=== PATIENT | female | born 1955 | race African-American/Black ===

== ENCOUNTER 2018-01-17 17:56 | Inpatient (IN) | payer OTHER ==
--- NOTE | 2018-01-17 18:45 | ER Document Report ---
ED Extremity Problem, Upper - General Chief Complaint: Hand Swelling Stated Complaint: FINGER SWELLING Time Seen by Provider: 01/17/18 18:36 Mode of Arrival: Ambulatory Information source: Patient Notes: 62-year-old hypertensive female with a history of a chronic bump on the top of her left third finger woke up Sunday morning with swelling to the PIP joint. She saw Dr. Everett on Sunday he started her on Augmentin 875 and it is increased in pain, erythema, swelling since then. It is throbbing and very painful. She states the swelling is now into the middle of her dorsal left hand. She does have a history of gout. Low-grade fever. She does not systemically feel ill. TRAVEL OUTSIDE OF THE [place] IN LAST 30 DAYS: No - Related Data Allergies/Adverse Reactions: No Known Allergies Allergy (Verified 01/17/18 17:58) Past Medical History - General Information source: Patient - Social History Smoking Status: Never Smoker Frequency of alcohol use: None Drug Abuse: None Lives with: Spouse/Significant other Family History: Reviewed & Not Pertinent - Past Medical History Cardiac Medical History: Reports: Hx Hypertension Musculoskeltal Medical History: Reports Hx Gout Surgical Hx: Negative - Immunizations Hx Diphtheria, Pertussis, Tetanus Vaccination: No Review of Systems - Review of Systems Constitutional: See HPI EENT: No symptoms reported Cardiovascular: No symptoms reported Respiratory: No symptoms reported Gastrointestinal: No symptoms reported Genitourinary: No symptoms reported Female Genitourinary: No symptoms reported Musculoskeletal: See HPI Skin: No symptoms reported Hematologic/Lymphatic: No symptoms reported Neurological/Psychological: No symptoms reported Physical Exam - Vital signs Vitals: Temp Pulse Resp BP Pulse Ox 99.0 F 77 18 196/96 H 98 01/17/18 18:06 01/17/18 18:06 01/17/18 18:06 01/17/18 18:06 01/17/18 18:06 Interpretation: Normal - General General appearance: Appears well, Alert In distress: None - HEENT Head: Normocephalic, Atraumatic Eyes: Normal Conjunctiva: Normal Pupils: PERRL Neck: Supple - Respiratory Respiratory status: No respiratory distress Chest status: Nontender Breath sounds: Normal Chest palpation: Normal - Cardiovascular Rhythm: Regular Heart sounds: Normal auscultation Murmur: No - Abdominal Inspection: Normal Distension: No distension Bowel sounds: Normal Tenderness: Nontender Organomegaly: No organomegaly - Back Back: Normal, Nontender - Extremities General upper extremity: Normal inspection, Nontender, Normal color, Normal ROM , Normal temperature General lower extremity: Normal inspection, Nontender, Normal color, Normal ROM , Normal temperature, Normal weight bearing. No: Connie's sign Hand: Tender, No evidence of human bite, No evidence of FB, Swelling - red, warm left middle finger from mid distal phalanx to the base of the finger, most prominent on the PIP joint. swelling to mid dorsal left hand. Tender hoyt aspect of the mid finger also, not able to flex due to pain, n/v intact distally. No signs of skin penetration for source of infection. - Neurological Neuro grossly intact: Yes Cognition: Normal Orientation: AAOx4 [place] Coma Scale Eye Opening: Spontaneous [place] Coma Scale Verbal: Oriented [place] Coma Scale Motor: Obeys Commands [place] Coma Scale Total: 15 Speech: Normal Motor strength normal: LUE, RUE, LLE, RLE Sensory: Normal - Psychological Associated symptoms: Normal affect, Normal mood - Skin Skin Temperature: Warm Skin Moisture: Dry Skin Color: Normal Course - Re-evaluation Re-evalutation: 01/17/18 20:40 I consulted earlier with Dr. Sibley's guardian and he wanted me to consult with Dr. grigsby because the physical exam is most consistent with tenosynovitis. I just got off the phone with Dr. Bethea he wants a sed rate and CRP added with an MRI of the finger to define what is actually going on with the finger. I will call him back with the results. The patient is unable to have IV contrast because her creatinine is 1.98 and GFR is 31, I spoke with radiologist and he will be able to determine okay without contrast. 01/17/18 23:00, called dr. bond back with the esr, crp and MR results, he will admit the patient and take to surgery in am, orders given to the nurse. Spouse is going home to get her correct list of medications that she takes at home for hypertension. - Vital Signs Vital signs: Temp Pulse Resp BP Pulse Ox 99.1 F 74 18 168/82 H 99 01/19/18 00:11 01/19/18 00:11 01/19/18 00:11 01/19/18 00:11 01/19/18 00:11 - Laboratory Result Diagrams: 01/17/18 19:30 01/17/18 19:30 Laboratory results interpreted by me: 01/17/18 01/17/18 01/17/18 19:30 19:30 19:30 RBC 3.34 L Hgb 10.5 L Hct 30.8 L ESR 118 H Sodium 146.4 H Chloride 108 H BUN 21 H Creatinine 1.98 H Est GFR ( Amer) 31 L Est GFR (Non-Af Amer) 26 L Uric Acid 7.8 H Calcium 10.8 H Direct Bilirubin 0.6 H Alkaline Phosphatase 137 H C-Reactive Protein 01/17/18 19:30 RBC Hgb Hct ESR Sodium Chloride BUN Creatinine Est GFR ( Amer) Est GFR (Non-Af Amer) Uric Acid Calcium Direct Bilirubin Alkaline Phosphatase C-Reactive Protein 71.8 H Discharge - Discharge Clinical Impression: right 3rd finger infection Hypertension Qualifiers: Hypertension type: essential hypertension Qualified Code(s): I10 - Essential ( primary) hypertension Condition: Stable Disposition: ADMITTED INPATIENT Admitting Provider: bodn Unit Admitted: Surgical Floor
[2018-01-17] MEDS ORDERED: CEFTRIAXONE INJ 1000 MG VIAL IV ONE (18:48)
--- NOTE | 2018-01-17 19:20 | RADIOLOGY REPORT (SQ) ---
EXAM DESCRIPTION: FINGER LEFT COMPLETED DATE/TIME: 01/17/2018 6:53 pm REASON FOR STUDY: swollen red COMPARISON: None. NUMBER OF VIEWS: Three views. TECHNIQUE: AP, lateral, and oblique images acquired of the left third finger. LIMITATIONS: None. FINDINGS: MINERALIZATION: Normal. BONES: No acute fracture identified. SOFT TISSUES: Moderate soft tissue swelling with small periarticular densities present medially and l aterally, seen best on the frontal projection. OTHER: No other significant finding. IMPRESSION: Moderate soft tissue swelling with small periarticular densities present medially and la terally, seen best on the frontal projection. Differential considerations include acute injury, infl ammatory arthritis, or possibly infection in the appropriate clinical setting. COMMENT: SITE OF TRAUMA/COMPLAINT MARKED/STAMP COMPLETED: Yes TECHNICAL DOCUMENTATION: JOB ID: [id number] [place]-72 2010 [employer]- All Rights Reserved
[2018-01-17 19:45] LABS: ABSOLUTE EOSINOPHILS # (AUTO) 0.1 10^3/uL (0.0-0.6); ABSOLUTE LYMPHOCYTES (AUTO) 1.1 10^3/uL (0.5-4.7); ABSOLUTE MONOCYTES (AUTO) 0.3 10^3/uL (0.1-1.4); ABSOLUTE NEUT (AUTO) 4.2 10^3/uL (1.7-8.2); BASOPHILS % (AUTO) 0.4 % (0-2); EOSINOPHILS % (AUTO) 1.5 % (0-6); HEMATOCRIT 30.8 % (36.0-47.0); HEMOGLOBIN 10.5 g/dL (12.0-15.5); LYMPHOCYTES % (AUTO) 19.2 % (13-45); MEAN CORPUSCULAR HEMOGLOBIN 31.5 pg (27.0-33.4); MEAN CORPUSCULAR HGB CONC 34.1 g/dL (32.0-36.0); MEAN CORPUSCULAR VOLUME 92 fl (80-97); MONOCYTES % (AUTO) 5.1 % (3-13); PLATELET COUNT 306 10^3/uL (150-450); RED BLOOD COUNT 3.34 10^6/uL (3.72-5.28); RED CELL DISTRIBUTION WIDTH 13.5 % (11.5-14.0); SEGMENTED NEUTROPHILS % (AUTO) 73.8 % (42-78); TOTAL CELLS COUNTED % (AUTO) 100 %; WHITE BLOOD COUNT 5.7 10^3/uL (4.0-10.5)
[2018-01-17 20:08] LABS: ALANINE AMINOTRANSFERASE 38 U/L (9-52); ALBUMIN 4.3 g/dL (3.5-5.0); ALKALINE PHOSPHATASE 137 U/L (38-126); ANION GAP 15 (5-19); ASPARTATE AMINO TRANSFERASE 33 U/L (14-36); BILIRUBIN,DIRECT 0.6 mg/dL (0.0-0.4); BILIRUBIN,TOTAL 0.6 mg/dL (0.2-1.3); BLOOD UREA NITROGEN 21 mg/dL (7-20); CALCIUM 10.8 mg/dL (8.4-10.2); CARBON DIOXIDE 23 mmol/L (22-30); CHLORIDE 108 mmol/L (98-107); GLUCOSE 93 mg/dL (75-110); POTASSIUM 3.6 mmol/L (3.6-5.0); SODIUM 146.4 mmol/L (137-145); TOTAL PROTEIN 7.7 g/dL (6.3-8.2); URIC ACID 7.8 mg/dL (2.5-7.5)
[2018-01-17] MEDS ORDERED: ONDANSETRON 4 MG TAB.RAPDIS PO ONE (20:23)
[2018-01-17] MEDS ORDERED: MORPHINE SULFATE 10 MG/ML INJ IV ONE (20:23)
[2018-01-17] MEDS ORDERED: HYDROMORPHONE HCL INJ/PF 2 MG/ML AMPULE IV ONE ×2 (20:40→22:48)
--- NOTE | 2018-01-17 22:45 | RADIOLOGY REPORT (SQ) ---
EXAM DESCRIPTION: MRI LT UPPER JOINT WITHOUT COMPLETED DATE/TIME: 01/17/2018 10:12 pm REASON FOR STUDY: look for tenosynovitis COMPARISON: Radiographs from earlier today. TECHNIQUE: Focussed imaging of the long finger. Noncontrast. Sequences consist of T1, T2 fat satur ated and gradient. FINDINGS: Bones: Generally maintained marrow signal without evidence of significant edema. There i s joint space narrowing at the PIP joint with small subchondral cysts or erosions. DIP joint space n arrowing is also present. MCP joint looks relatively intact. No subluxation or dislocation evident. Soft tissues: Soft tissue swelling along the distal aspect of the long finger generally. The PIP melanie int looks distended with fluid. Mild capsular thickening. No significant fluid focally along the fl exor or extensor tendons suggested. Other: No other significant abnormality detected. IMPRESSION: 1. As seen radiographically, there is long finger swelling with changes most notable at the PIP joint. Effusion, subcutaneous edema and joint space narrowing. Differential predominantly i ncludes infectious etiologies as well as inflammatory arthritis (for example rheumatoid arthritis or gout). Patient states no history of recent trauma. No suggestion of significant associated tenosyno vitis. TECHNICAL DOCUMENTATION: JOB ID: [id number] [employer]- All Rights Reserved
[2018-01-17] MEDS ORDERED: NORMAL SALINE 1000 ML 1,000 ML IV ONE (22:56)
[2018-01-17] MEDS ORDERED: AMLODIPINE BESYLATE 10 MG TABLET PO ONE (23:00)
[2018-01-17] MEDS ORDERED: DEXAMETHASONE 4 MG TABLET PO ONE (23:33)
[2018-01-17] MEDS ORDERED: CLONIDINE HCL 0.2 MG TABLET PO ONE (23:45)
[2018-01-17] MEDS ORDERED: LOSARTAN POTASSIUM 50 MG TABLET PO ONE (23:45)
[2018-01-17] MEDS ORDERED: OXYCODONE-ACETAMINOPHEN 5-325 MG TABLET PO PRN (23:52)
[2018-01-17] MEDS ORDERED: ONDANSETRON HCL INJ/PF 4 MG/2 ML SDV IV PRN (23:54)
[2018-01-18] MEDS: HYDROMORPHONE HCL INJ/PF 2 MG/ML AMPULE IV PRN ×2 (01:25→20:19)
--- NOTE | 2018-01-18 08:22 | PDOC H&P ---
History of Present Illness Admission Date/PCP: 01/17/18 23:26 JIM STARKS Patient complains of: Left middle finger swelling and pain History of Present Illness: MADHAVI CHE is a 62 year old female who has had one weeks worth of increasing left middle finger pain and swelling. She saw her primary week ago who had placed her on antibiotics and despite treatment with antibiotics patient has developed increased swelling of the knuckle and the middle finger and decreased range of motion second the pain. Denies any numbness or tingling or paresthesias. She is tender to touch over the PIP joint. Complains of low- grade fever but no chills. Denies any previous injuries. States she does have arthritis. Denies any cuts or abrasions or puncture wounds. Denies any autoimmune disease. Past Medical History Cardiac Medical History: Reports: Hypertension Musculoskeltal Medical History: Reports: Arthritis, Gout Social History Lives with: Spouse/Significant other Smoking Status: Former Smoker Last Time Smoked: 2007 Frequency of Alcohol Use: None Hx Recreational Drug Use: No Family History Family History: Reviewed & Not Pertinent Parental Family History Reviewed: No Children Family History Reviewed: No Sibling(s) Family History Reviewed.: No Medication/Allergy Home Medications: Amlodipine Besylate 1 tab PO DAILY 01/26/14 Clonidine HCl [Catapres 0.2 mg Tablet] 0.2 mg PO Q12 01/26/14 Colchicine [Colchicine 0.6 mg Tablet] 0.6 mg PO BID #10 tablet 01/26/14 Losartan Potassium 100 mg PO QHS 01/26/14 Oxycodone HCl 5 mg PO Q6HP PRN #10 tablet 01/26/14 Indomethacin [Indocin 50 mg Capsule] 50 mg PO TID #60 capsule 06/04/16 Oxycodone HCl/Acetaminophen [Percocet 5-325 mg Tablet] 1 - 2 tab PO ASDIR PRN # 15 tablet 06/04/16 Allergies/Adverse Reactions: No Known Allergies Allergy (Verified 01/17/18 17:58) Review of Systems Constitutional: PRESENT: fever(s). ABSENT: anorexia, chills, headache(s), night sweats, weight gain, weight loss Cardiovascular: ABSENT: chest pain, palpitations Respiratory: ABSENT: cough, dyspnea, hemoptysis Gastrointestinal: ABSENT: abdominal pain, vomiting Genitourinary: ABSENT: difficulty urinating, hematuria Musculoskeletal: PRESENT: joint swelling. ABSENT: buckling, deformity Integumentary: ABSENT: erythema, lesions, pruritus, rash, wounds Psychiatric: ABSENT: homidical ideation, suicidal ideation Endocrine: ABSENT: cold intolerance, heat intolerance Hematologic/Lymphatic: ABSENT: lymphadenopathy Allergic/Immunologic: ABSENT: seasonal rhinorrhea Physical Exam Vital Signs: Temp Pulse Resp BP Pulse Ox 36.4 C 65 18 163/77 H 100 01/18/18 02:38 01/18/18 02:38 01/18/18 02:38 01/18/18 02:38 01/18/18 02:38 Intake & Output 01/17/18 01/18/18 01/19/18 06:59 06:59 06:59 Intake Total 350 Balance 350 General appearance: PRESENT: no acute distress Eye exam: PRESENT: EOMI, other - Symmetric pupils. ABSENT: nystagmus Ear exam: PRESENT: normal external ear exam. ABSENT: drainage Mouth exam: PRESENT: neck supple Neck exam: ABSENT: lymphadenopathy, thyromegaly, tracheal deviation Respiratory exam: PRESENT: symmetrical, unlabored. ABSENT: accessory muscle use , tachypnea Cardiovascular exam: PRESENT: RRR Pulses: PRESENT: normal radial pulses Vascular exam: PRESENT: normal capillary refill GI/Abdominal exam: PRESENT: soft. ABSENT: distended, tenderness Back of Hands Image: 1 - Patient has swelling of the middle finger on the left hand and exquisite tenderness and fluid in the PIP joint with limited range of motion second the pain. She does have sensation to light touch distally and does have good capillary refill. Has pain with any attempt of extension flexion and/or stressing of varus and valgus. No erythema but difficult to assess due to patient being -[place]. Neurological exam: PRESENT: alert, awake, oriented to person, oriented to place , oriented to time, oriented to situation Psychiatric exam: PRESENT: appropriate affect, normal mood Skin exam: ABSENT: abrasion, rash, skin tears Results Impressions: Finger X-Ray 01/17/18 18:40 IMPRESSION: Moderate soft tissue swelling with small periarticular densities present medially and laterally, seen best on the frontal projection. Differential considerations include acute injury, inflammatory arthritis, or possibly infection in the appropriate clinical setting. Upper Extremity MRI 01/17/18 20:37 IMPRESSION: 1. As seen radiographically, there is long finger swelling with changes most notable at the PIP joint. Effusion, subcutaneous edema and joint space narrowing. Differential predominantly includes infectious etiologies as well as inflammatory arthritis (for example rheumatoid arthritis or gout). Patient states no history of recent trauma. No suggestion of significant associated tenosynovitis. Status: Image reviewed by me Assessment & Plan - Diagnosis (1) Septic arthritis of interphalangeal joint of finger of left hand Is this a current diagnosis for this admission?: Yes Plan: Patient has failed p.o. antibiotics and IV antibiotics that was given the ER. CRP and sed rate are elevated. MRI shows fluid collection in the PIP joint of the left middle finger. Likely septic arthritis versus inflammatory arthritis. Discussed the risk and benefits with the patient and will have her consent and proceed with I&D of the PIP joint of the left middle finger.
[2018-01-18] MEDS ORDERED: CEFTRIAXONE 1 GM/D5W RTU 1 GM/50 ML RTUPB IV SCH (10:00)
[2018-01-18] MEDS: AMLODIPINE BESYLATE 10 MG TABLET PO SCH (10:32)
[2018-01-18] MEDS: CEFTRIAXONE SODIUM 1,000 MG in NORMAL SALINE 100 ML IV SCH (10:32)
[2018-01-18] MEDS: CLONIDINE HCL 0.2 MG TABLET PO SCH (10:33)
[2018-01-18] MEDS: RINGERS SOLUTION,LACTATED 1,000 ML IV PRN ×2 (11:01→16:19)
[2018-01-18] MEDS ORDERED: BACITRACIN INJ 50,000 UNIT VIAL ONE (13:06)
--- NOTE | 2018-01-18 13:17 | EKG REPORT ---
SEVERITY:- ABNORMAL ECG - SINUS RHYTHM PROBABLE LEFT ATRIAL ABNORMALITY PROBABLE LEFT VENTRICULAR HYPERTROPHY NONSPECIFIC LATERAL ST-T CHANGES : Confirmed by: Imer Tijerina MD 18-Jan-2018 13:17:02
[2018-01-18] MEDS ORDERED: MIDAZOLAM 2 MG/2 ML INJ ONE (14:29)
[2018-01-18] MEDS ORDERED: FENTANYL CITRATE INJ/PF 100 MCG/2 ML AMPUL ONE (14:29)
[2018-01-18] MEDS ORDERED: PROPOFOL INJ 200 MG/20 ML VIAL IV ONE (14:30)
[2018-01-18] MEDS ORDERED: BUPIVACAINE HCL 0.25 % INJ/PF (2.5 MG/1 ML) 30 ML VIAL ONE (14:31)
[2018-01-18] MEDS ORDERED: MEPERIDINE HCL/PF INJ 25 MG/1 ML DISP.SYRIN IV PRN (14:53)
[2018-01-18] MEDS ORDERED: FENTANYL CITRATE INJ/PF 100 MCG/2 ML AMPUL IV PRN ×3 (14:53)
[2018-01-18] MEDS ORDERED: PROMETHAZINE HCL INJ 25 MG/1 ML VIAL IV PRN ×2 (14:53)
[2018-01-18] MEDS ORDERED: DIPHENHYDRAMINE HCL 50 MG/ML VIAL IV PRN (14:53)
[2018-01-18] MEDS ORDERED: MORPHINE SULFATE 10 MG/ML INJ IV PRN (14:53)
--- NOTE | 2018-01-18 15:34 | Operative Report ---
Operative Report DATE OF SURGERY: 01/18/18 PREOPERATIVE DIAGNOSIS: Left PIP joint septic arthritis POSTOPERATIVE DIAGNOSIS: Left PIP finger gouty arthritis OPERATION: I&D of left PIP joint SURGEON: HAL HAGAN ANESTHESIA: LMAC TISSUE REMOVED OR ALTERED: None COMPLICATIONS: None ESTIMATED BLOOD LOSS: Less than 10 mL INTRAOPERATIVE FINDINGS: Gouty arthropathy PROCEDURE: Patient was brought to the operating room and was given MAC anesthetic and the left hand was prepped and draped in a normal sterile surgical fashion. Of note patient did get a upper extremity tourniquet applied prior to prepping and draping. After timeout was done a digital nerve block was done to the middle finger of the left hand. At that point the tourniquet was inflated 250 mmHg without using the Esmarch. Hand were on the dorsal aspect a curvilinear incision over the PIP joint was done. Lately scissors was used to elevate the skin flap and expose the extensor tendon mechanism. There is diffuse third spacing and fluid. Between the sagittal band and the extensor tendon complex I was able to do a rent in the PIP joint and immediately had chalky material consistent with tophaceous gout. No purulent drainage was expressed. Patient does have some osteophytic changes and loss of cartilage of the condyle of the proximal phalanx. At this point after irrigating the PIP with a syringe I then proceeded to close the arthrotomy with a 3-0 Vicryl using a simple stitch. I then reapproximated the dermal tissue with a 3-0 Vicryl and then used 3-0 nylon to close the dermis using a horizontal mattress stitch. Xeroform was applied and then covered with the sterile dressing and then overwrapped with an Terry bandage. Tourniquet was let down and then the patient was undraped and then transferred to PACU in stable condition.
[2018-01-18] MEDS ORDERED: ONDANSETRON HCL INJ/PF 4 MG/2 ML SDV IV PRN (15:36)
[2018-01-18] MEDS: OXYCODONE-ACETAMINOPHEN 5-325 MG TABLET PO PRN (17:45)
[2018-01-18] MEDS: COLCHICINE 0.6 MG TABLET PO SCH (21:33)
[2018-01-18] MEDS ORDERED: LOSARTAN POTASSIUM 50 MG TABLET PO SCH (22:00)
[2018-01-19] MEDS: HYDROMORPHONE HCL INJ/PF 2 MG/ML AMPULE IV PRN ×2 (01:34→07:01)
[2018-01-19] MEDS: RINGERS SOLUTION,LACTATED 1,000 ML IV PRN ×2 (01:35→10:19)
[2018-01-19 07:01] LABS: HEMATOCRIT 26.5 % (36.0-47.0); HEMOGLOBIN 9.2 g/dL (12.0-15.5); MEAN CORPUSCULAR HEMOGLOBIN 31.7 pg (27.0-33.4); MEAN CORPUSCULAR HGB CONC 34.6 g/dL (32.0-36.0); MEAN CORPUSCULAR VOLUME 92 fl (80-97); PLATELET COUNT 239 10^3/uL (150-450); RED BLOOD COUNT 2.89 10^6/uL (3.72-5.28); RED CELL DISTRIBUTION WIDTH 13.2 % (11.5-14.0); WHITE BLOOD COUNT 5.9 10^3/uL (4.0-10.5)
[2018-01-19 07:29] LABS: ANION GAP 11 (5-19); BLOOD UREA NITROGEN 18 mg/dL (7-20); CALCIUM 10.1 mg/dL (8.4-10.2); CARBON DIOXIDE 21 mmol/L (22-30); CHLORIDE 110 mmol/L (98-107); GLUCOSE 84 mg/dL (75-110); POTASSIUM 3.9 mmol/L (3.6-5.0); SODIUM 141.8 mmol/L (137-145)
[2018-01-19] MEDS: AMLODIPINE BESYLATE 10 MG TABLET PO SCH (10:20)
[2018-01-19] MEDS: CEFTRIAXONE SODIUM 1,000 MG in NORMAL SALINE 100 ML IV SCH (10:20)
[2018-01-19] MEDS: COLCHICINE 0.6 MG TABLET PO SCH (10:20)
[2018-01-19] MEDS: CLONIDINE HCL 0.2 MG TABLET PO SCH (10:20)
[2018-01-19] MEDS: OXYCODONE-ACETAMINOPHEN 5-325 MG TABLET PO PRN (18:29)
--- NOTE | 2018-01-19 19:59 | PDOC DISCHARGE SUMMARY ---
General - Admit/Disc Date/PCP Admission Date/Primary Care Provider: 01/17/18 23:26 JIM STARKS Discharge Date: 01/19/18 - Discharge Diagnosis (1) Septic arthritis of interphalangeal joint of finger of left hand Is this a current diagnosis for this admission?: Yes - Additional Information Resuscitation Status: Full Code Home Medications: Amlodipine Besylate [Norvasc 10 mg Tablet] 10 mg PO QHS 01/18/18 Amox Tr/Potassium Clavulanate [Augmentin 875-125 mg Tablet] 1 tab PO Q12 Clonidine HCl [Catapres 0.2 mg Tablet] 0.2 mg PO QHS 01/18/18 Colchicine [Colcrys 0.6 mg Tablet] 1 tab PO BIDP PRN 01/18/18 Ergocalciferol (Vitamin D2) [Vitamin D2] 50,000 unit PO MOTH@1000 01/18/18 Fenofibrate Nanocrystallized [Tricor 145 mg Tablet] 145 mg PO DAILY 01/18/18 Hydrocodone/Acetaminophen [[place] 5-325 mg Tablet] 1 tab PO DAILYP PRN 01/18/18 Indomethacin [Indocin 50 Mg Capsule] 50 mg PO BIDP PRN 01/18/18 Losartan Potassium [Cozaar 100 mg Tablet] 100 mg PO QHS 01/18/18 Potassium Chloride [Klor-Con 10 Meq Tablet.sa] 10 meq PO DAILY 01/18/18 History of Present Illness Patient complains of: Left middle finger local swelling and pain History of Present Illness: Patient with 5 days worth of increasing swelling and pain of the left middle finger PIP. Her failed p.o. antibiotics. She was admitted with elevated white count and CRP and sed rate concerning for septic arthritis after MRI showed fluid in the PIP joint and joint space narrowing. Patient the next day was taken for I&D of the left middle finger PIP joint and upon surgery immediately patient had tophaceous gout expressed with no pus. Patient was given overnight for IV antibiotics and pain control and then discharged today on 01/19/2018. Patient instructed to remove dressing tomorrow and okay to shower. Avoid baths. Will follow-up in 1 week. Hospital Course Hospital Course: Patient on patient on 01/17/2018 was admitted for concern of left middle finger PIP septic arthritis. Patient on 01/18/2018 underwent I&D of the left middle finger and was diagnosed with tophaceous gout. Cultures are negative to date. Pain is better controlled. Patient was started on colchicine on 01/18/2018 and pain is improved and swelling has improved. Denies any numbness or tingling or paresthesias at the moment. Is ready to be discharged today to home and will instructed to follow-up in 1 week. Physical Exam Vital Signs: Temp Pulse Resp BP Pulse Ox 37.2 C 65 16 136/68 H 100 01/19/18 16:38 01/19/18 16:38 01/19/18 16:38 01/19/18 16:38 01/19/18 16:38 Intake & Output 01/18/18 01/19/18 01/20/18 06:59 06:59 06:59 Intake Total 350 1506 Output Total 0 Balance 350 1506 General appearance: PRESENT: no acute distress Head exam: PRESENT: atraumatic, normocephalic Eye exam: PRESENT: EOMI. ABSENT: nystagmus Respiratory exam: PRESENT: symmetrical, unlabored. ABSENT: accessory muscle use , tachypnea Pulses: PRESENT: normal radial pulses Vascular exam: PRESENT: normal capillary refill Back of Hands Image: 1 - Swelling is improved. Dressing is dry clean and intact. Good capillary refill with good sensation to light touch. Still has some pain with attempted passive range of motion. Limited active range of motion second the pain. Psychiatric exam: PRESENT: appropriate affect, normal mood Results Laboratory Results: 01/19/18 06:45 01/19/18 06:45 01/19/18 01/19/18 06:45 06:45 WBC 5.9 RBC 2.89 L Hgb 9.2 L Hct 26.5 L MCV 92 MCH 31.7 MCHC 34.6 RDW 13.2 Plt Count 239 Sodium 141.8 Potassium 3.9 Chloride 110 H Carbon Dioxide 21 L Anion Gap 11 BUN 18 Creatinine 1.72 H Est GFR ( Amer) 36 L Est GFR (Non-Af Amer) 30 L Glucose 84 Calcium 10.1 Impressions: Finger X-Ray 01/17/18 18:40 IMPRESSION: Moderate soft tissue swelling with small periarticular densities present medially and laterally, seen best on the frontal projection. Differential considerations include acute injury, inflammatory arthritis, or possibly infection in the appropriate clinical setting. Upper Extremity MRI 01/17/18 20:37 IMPRESSION: 1. As seen radiographically, there is long finger swelling with changes most notable at the PIP joint. Effusion, subcutaneous edema and joint space narrowing. Differential predominantly includes infectious etiologies as well as inflammatory arthritis (for example rheumatoid arthritis or gout). Patient states no history of recent trauma. No suggestion of significant associated tenosynovitis. Status: Image reviewed by me Qualifiers - * PATEINT BEING DISCHARGED WITH ANY OF THE FOLLOWING DIAGNOSIS?: No VTE patient discharged on overlapping Therapy?: No Reason(s) for not prescribing Overlap Therapy:: Not indicated Plan Discharge Plan: 62-year-old female status post I&D of left middle finger PIP joint. At discharge patient was diagnosed with tophaceous gout. Patient will be discharged with colchicine and pain killer. Will place over the aunt biotics for 4 days to avoid infection. We will have her follow-up in one week in the office. Instructed to do passive range of motion. We will change her dressing tomorrow and okay to shower after that.
[2018-01-19 20:32] VITALS: BP 138/70
== END 2018-01-19 21:12 | disposition home or self-care (01) | DRG 506 ==
LOC: ER 17:56 → EH 23:26 → UNDOADMIN 23:26 → EH 01-18 02:04 → 2N 01-18 02:04
PROVIDERS: ADMIT Orthopaedic Surgery; ATTEND Orthopaedic Surgery
PROC: 0R9X0ZZ Drainage of Left Finger Phalangeal Joint, Open Approach (ICD-10-PCS; principal; 2018-01-18 14:15)
DX: M1A.9XX1 Chronic gout, unspecified, with tophus (tophi) (principal); M00.9 Pyogenic arthritis, unspecified; I10 Essential (primary) hypertension; Z87.891 Personal history of nicotine dependence
CPT/HCPCS: 00400; 36415; 80048; 80053; 84550; 85025; 85027; 85652; 86140; 87040; 87070; 87205; 93005; 93010; 94799; 96365; 96375; 96376; 99285; J0696; J1170; J2250; J2704; J3010; J3490; J7030; J7120; S0119

== ENCOUNTER → 2019-01-16 | Outpatient (CLI) | payer OTHER ==
--- NOTE | 2019-01-16 16:08 | WOMENS IMAGING REPORT ---
EXAM DESCRIPTION: BILAT SCREENING MAMMO W/CAD COMPLETED DATE/TIME: 01/16/2019 2:53 pm REASON FOR STUDY: Z12.31 SCREENING MAMMO Z12.31 ENCNTR SCREEN MAMMOGRAM FOR MALIGNANT NEOPLASM OF B RE COMPARISON: 2008, 2013 TECHNIQUE: Standard craniocaudal and mediolateral oblique views of each breast recorded using [employer] l acquisition. LIMITATIONS: None. FINDINGS: No masses, calcifications or architectural distortion. No areas of suspicion. Read with the assistance of CAD. .[facility] - R2 [employer] Version 1.3 .[facility] - R2 Cenova Version 1.3 .[facility] - R2 Cenova Version 2.4 [place] [place] C[place]ova Version 2.4 .[facility] - R2 [employer] Version 9.2 IMPRESSION: NORMAL MAMMOGRAM. BIRADS 1. BREAST DENSITY: c. The breasts are heterogeneously dense, which may obscure small masses. BIRAD: 1 NEGATIVE RECOMMENDATION: ROUTINE SCREENING Please continue yearly bilateral screening mammography/tomosynthesis in November 2019 given heterogene ously dense breast tissue bilaterally COMMENT: The patient has been notified of the results by letter per MQSA requirements. Additional no tification policies are in place for contacting patient with suspicious or incomplete findings. Quality ID #[id number]: The [employer] recommends an annual screening mammogram for women aged 40 years or over. This facility utilizes a reminder system to ensure that all patients receive reminder letters, and/or direct phone calls for appointments. This includes reminders for routine scr eening mammograms, diagnostic mammograms, or other Breast Imaging Interventions when appropriate. Th is patient will be placed in the appropriate reminder system. The [employer] (ACR) has developed recommendations for screening MRI of the breast s in certain patient populations, to be used in conjunction with mammography. Breast MRI surveillanc e may be appropriate for women with more than 20% lifetime risk of developing breast cancer as deter mined by genetic testing, significant family history of the disease, or history of mantle radiation f or Hodgkins Disease. ACR Practice Guidelines 2008. TECHNICAL DOCUMENTATION: FINDING NUMBER: (1) ASSESSMENT: (1) JOB ID: [id number] [employer]- All Rights Reserved Reading location - IP/workstation name: [email or web address]
== END ==
LOC: WI 14:32
PROVIDERS: ATTEND Internal Medicine
DX: Z12.31 Encounter for screening mammogram for malignant neoplasm of breast (principal)
CPT/HCPCS: 77067

== ENCOUNTER → 2020-12-06 | Outpatient (CLI) | payer MEDICARE ==
[2020-12-06 10:19] LABS: ALBUMIN 4.3 g/dL (3.5-5.0); ALKALINE PHOSPHATASE 116 U/L (38-126); ANION GAP 10 (5-19); BILIRUBIN,DIRECT 0.3 mg/dL (0.0-0.4); BILIRUBIN,TOTAL 0.5 mg/dL (0.2-1.3); BLOOD UREA NITROGEN 18 mg/dL (7-20); CALCIUM 10.7 mg/dL (8.4-10.2); CARBON DIOXIDE 24 mmol/L (22-30); CHLORIDE 112 mmol/L (98-107); CHOLESTEROL 165.07 mg/dL (0-200); GLUCOSE 107 mg/dL (75-110); POTASSIUM 3.5 mmol/L (3.6-5.0); TOTAL PROTEIN 7.7 g/dL (6.3-8.2); TRIGLYCERIDES 231 mg/dL (<150)
[2020-12-06 10:20] LABS: ASPARTATE AMINO TRANSFERASE 19 U/L (14-36)
[2020-12-06 10:30] LABS: DIRECT LDL 83 mg/dL (<100)
[2020-12-06 10:37] LABS: VLDL CHOLESTEROL 46.2 mg/dL (10-31)
== END ==
LOC: OD 08:57
PROVIDERS: ATTEND Family Medicine
DX: I10 Essential (primary) hypertension (principal); E78.5 Hyperlipidemia, unspecified
CPT/HCPCS: 36415; 80053; 80061

== ENCOUNTER → 2020-12-08 | Outpatient (CLI) | payer MEDICARE ==
--- NOTE | 2020-12-08 12:29 | WOMENS IMAGING REPORT ---
EXAM DESCRIPTION: BONE DENSITY HIP/SPINE IMAGES COMPLETED DATE/TIME: 12/08/2020 11:28 am REASON FOR STUDY: Z78.0 Z12.31 ENCNTR SCREEN MAMMOGRAM FOR MALIGNANT NEOPLASM OF RANULFO Z78.0 ASYMPTO MATIC MENOPAUSAL STATE COMPARISON: None. TECHNIQUE: Dual-Energy X-ray Absorptiometry (DEXA) of the AP Spine and Hip. LIMITATIONS: None. FINDINGS: LUMBAR SPINE: The bone mineral density (BMD) measured from L1-L4 in the AP projection correlates with a T-score of -2.6, which is osteoporosis as defined by the World Health Organization. BMD Change vs Baseline: N/A HIP: The bone mineral density (BMD) measured in the left hip correlates with a T-score of -2.9 in the femo ral neck, which is osteoporosis as defined by the World Health Organization. BMD Change vs Baseline: N/A 10 year Fracture Risk Assessment: Major Osteoporotic Fracture: Not available. Hip Fracture: Not available. IMPRESSION: 1. LUMBAR SPINE WHO CLASSIFICATION: OSTEOPOROSIS. 2. HIP WHO CLASSIFICATION: OSTEOPOROSIS. OVERALL ASSESSMENT: WHO CLASSIFICATION: OSTEOPOROSIS. COMMENT: The World Health Organization defines low BMD as follows: T-score: Normal: At or above -1.0 Osteopenia: Between -1.0 and -2.5 Osteoporosis: At or below -2.5 without fractures Established osteoporosis: At or below -2.5 with fractures In general, you may wish to consider: Diagnosis Treatment Follow-up DEXA Normal BMD Prevention 2-3 years Osteopenia Prevention/Therapy 1-2 years Osteoporosis Therapy Yearly TECHNICAL DOCUMENTATION: JOB ID: [id number] 2010 [employer]- All Rights Reserved Reading location - IP/workstation name: [email or web address]
--- NOTE | 2020-12-08 13:28 | WOMENS IMAGING REPORT ---
EXAM DESCRIPTION: 3D SCREENING MAMMO BILAT IMAGES COMPLETED DATE/TIME: 12/08/2020 11:21 am REASON FOR STUDY: ROUTINE SCREENING MAMMOGRAM Z12.31 Z12.31 ENCNTR SCREEN MAMMOGRAM FOR MALIGNANT N EOPLASM OF RANULFO Z78.0 ASYMPTOMATIC MENOPAUSAL STATE COMPARISON: Priors dating back to 2008 EXAM PARAMETERS: Views: Standard craniocaudal and mediolateral oblique views of each breast recorded using digital acquisition and breast tomosynthesis. Read with the assistance of CAD. .[facility] - [employer] Expert Version 9.2 LIMITATIONS: None. FINDINGS: No suspicious masses, suspicious calcifications or architectural distortion. No areas of c oncern. IMPRESSION: NEGATIVE MAMMOGRAM. BIRADS 1. BREAST DENSITY: b. There are scattered areas of fibroglandular density. BIRAD: ASSESSMENT: 1 NEGATIVE RECOMMENDATION: ROUTINE SCREENING COMMENT: The patient has been notified of the results by letter per MQSA requirements. Additional no tification policies are in place for contacting patient with suspicious or incomplete findings. Quality ID #[id number]: The [employer] recommends an annual screening mammogram for women aged 40 years or over. This facility utilizes a reminder system to ensure that all patients receive reminder letters, and/or direct phone calls for appointments. This includes reminders for routine scr eening mammograms, diagnostic mammograms, or other Breast Imaging Interventions when appropriate. Th is patient will be placed in the appropriate reminder system. TECHNICAL DOCUMENTATION: FINDING NUMBER: (1) ASSESSMENT: (1) JOB ID: [id number] 2010 [employer]- All Rights Reserved Reading location - IP/workstation name: [email or web address]
== END ==
LOC: WI 11:03
PROVIDERS: ATTEND Family Medicine
DX: Z12.31 Encounter for screening mammogram for malignant neoplasm of breast (principal); M81.0 Age-related osteoporosis without current pathological fracture; Z78.0 Asymptomatic menopausal state
CPT/HCPCS: 77063; 77067; 77080